=== PATIENT | female | born 1940 | race African-American/Black ===

== ENCOUNTER 2017-06-26 16:45 | Inpatient (IN) | payer MEDICARE, OTHER ==
[~2017-06-26] VITALS: Ht 148.6 cm; Wt 57.2 kg
[2017-06-26 17:10] VITALS: BP 136/78
[2017-06-26] MEDS ORDERED: TEMAZEPAM 15 MG CAPSULE PO PRN (17:45)
[2017-06-26] MEDS ORDERED: DEXTROSE 50%-WATER 25 GM/50 ML SYRINGE IVP PRN (17:45)
[2017-06-26 18:22] LABS: GLUCOMETER DEV NAME(LOC) 2WR 2D; GLUCOSE,POINT OF CARE 158 MG/DL (70-110)
[2017-06-26] MEDS: INSULIN ASPART 100 UNITS/ML SQ PRN ×2 (18:55→21:43)
[2017-06-26] MEDS ORDERED: HEPARIN SODIUM,PORCINE 5,000 UNITS/ML VIAL SQ SCH (21:00)
[2017-06-26] MEDS: SENNA 187 MG TABLET PO SCH (21:09)
[2017-06-26] MEDS: ATORVASTATIN CALCIUM 40 MG TABLET PO SCH (21:09)
[2017-06-26] MEDS: DOCUSATE SODIUM 100 MG CAPSULE PO SCH (21:10)
[2017-06-26 21:53] LABS: GLUCOMETER DEV NAME(LOC) 2WR 1B; GLUCOSE,POINT OF CARE 217 MG/DL (70-110)
[2017-06-26 22:05] LABS: APPEARANCE,URINE CLEAR (CLEAR); BILIRUBIN,URINE NEGATIVE (NEGATIVE); GLUCOSE, URINE (UA) NEGATIVE (NEGATIVE); KETONES,URINE NEGATIVE (NEGATIVE); LEUKOCYTE ESTERASE ,URINE NEGATIVE (NEGATIVE); NITRATE,URINE NEGATIVE (NEGATIVE); OCCULT BLOOD,URINE NEGATIVE (NEGATIVE); PROTEIN,URINE NEGATIVE (NEGATIVE); UROBILINOGEN,URINE 0.2 mg/dL (<=1.0)
[2017-06-26 22:29] LABS: BACTERIA,URINE Few /HPF (None Seen); RBC,URINE 0-2 /HPF (0-2); SQUAMOUS EPITHELIAL CELL,UR Few /LPF (None Seen); WBC,URINE 0-2 /HPF (0-5)
[2017-06-27 01:00] VITALS: BP 137/72
[2017-06-27] MEDS: LEVOTHYROXINE SODIUM 75 MCG TABLET PO SCH (05:48)
[2017-06-27 06:07] LABS: GLUCOMETER DEV NAME(LOC) 2WR 1B; GLUCOSE,POINT OF CARE 221 MG/DL (70-110)
[2017-06-27 06:59] LABS: BASOPHILS # (AUTO) 0.02 K/uL (0.00-0.20); BASOPHILS % (AUTO) 0.4 % (0.0-2.0); EOSINOPHILS # (AUTO) 0.08 K/uL (0.00-0.70); EOSINOPHILS % (AUTO) 1.79 % (1.0-6.0); HEMATOCRIT 37.3 % (36-46); HEMOGLOBIN 12.1 g/dL (12.0-16.0); LYMPHOCYTES # (AUTO) 2.5 K/uL (1.0-4.8); LYMPHOCYTES % (AUTO) 52.3 % (22.0-44.0); MEAN CORPUSCULAR HEMOGLOBIN 27.7 pg (26.0-34.0); MEAN CORPUSCULAR HGB CONC 32.4 G/dL (31.0-37.0); MEAN CORPUSCULAR VOLUME 85 fL (80-100); MONOCYTES # (AUTO) 0.6 K/uL (0.1-1.0); MONOCYTES % (AUTO) 13.2 % (2.0-9.0); NEUTROPHILS # (AUTO) 1.5 K/uL (1.8-7.7); NEUTROPHILS % (AUTO) 32.3 % (40.0-70.0); PLATELET COUNT (AUTO) 222 K/uL (150-450); RED BLOOD CELL COUNT(AUTO) 4.36 MIL/uL (4.00-5.20); RED CELL DISTRIBUTION WIDTH 14.2 % (11.5-14.5)
[2017-06-27 07:24] LABS: ALANINE AMINOTRANSFERASE 38 U/L (12-78); ALBUMIN 3.6 g/dL (3.4-5.0); ALKALINE PHOSPHATASE 87 U/L (46-116); ANION GAP 9 mmol/L (8-16); ASPARTATE AMINOTRANSFERASE 23 U/L (15-37); BILIRUBIN,TOTAL 0.4 mg/dL (0.1-1.0); CALCIUM, TOTAL 9.1 mg/dL (8.8-10.5); CARBON DIOXIDE 25 mmol/L (22-29); CHLORIDE 103 mmol/L (98-107); CREATININE 1.03 mg/dL (0.60-1.30); GLOMERULAR FILTR. RATE CALC > 60 mL/min (>60); GLUCOSE,RANDOM 229 mg/dL (70-110); POTASSIUM 4.3 mmol/L (3.5-5.1); SODIUM SERUM 137 mmol/L (136-145); TOTAL PROTEIN, SERUM 7.1 g/dL (6.4-8.2); UREA NITROGEN, BLOOD 18 mg/dL (7-18)
[2017-06-27 07:45] VITALS: BP 137/84
[2017-06-27] MEDS: ASPIRIN 81 MG CHEWABLE TABLET PO SCH (08:29)
[2017-06-27] MEDS: ASPIRIN/DIPYRIDAMOLE ER 25/200 MG ER CAPSULE PO SCH (08:29)
[2017-06-27] MEDS: HEPARIN SODIUM,PORCINE 5,000 UNITS/ML VIAL SQ SCH ×2 (08:29→20:20)
[2017-06-27] MEDS: DOCUSATE SODIUM 100 MG CAPSULE PO SCH ×2 (08:29→20:20)
[2017-06-27] MEDS: INSULIN ASPART 100 UNITS/ML SQ PRN ×4 (08:36→21:48)
[2017-06-27 12:57] LABS: GLUCOMETER DEV NAME(LOC) 2WR 2D; GLUCOSE,POINT OF CARE 219 MG/DL (70-110)
[2017-06-27 15:59] VITALS: BP 122/79
[2017-06-27 18:08] LABS: GLUCOMETER DEV NAME(LOC) 2WR 1B; GLUCOSE,POINT OF CARE 154 MG/DL (70-110)
[2017-06-27] MEDS: ATORVASTATIN CALCIUM 40 MG TABLET PO SCH (20:19)
[2017-06-27] MEDS: SENNA 187 MG TABLET PO SCH (20:19)
[2017-06-27 21:52] LABS: GLUCOMETER DEV NAME(LOC) 2WR 1B; GLUCOSE,POINT OF CARE 227 MG/DL (70-110)
[2017-06-28] MEDS ORDERED: ASCO500 PO (03:25)
[2017-06-28] MEDS ORDERED: ATEN100T PO (03:25)
[2017-06-28] MEDS ORDERED: METF500T4 PO ×2 (03:25)
[2017-06-28] MEDS ORDERED: CALC-1038 PO (03:25)
[2017-06-28] MEDS ORDERED: ASPI-1182 PO (03:25)
[2017-06-28] MEDS ORDERED: LEVO75 PO (03:25)
[2017-06-28] MEDS ORDERED: ATOR20TA86 PO (03:25)
[2017-06-28] MEDS ORDERED: CHOL200016 PO (03:25)
[2017-06-28] MEDS ORDERED: TELM20 PO (03:25)
[2017-06-28 05:44] VITALS: BP 138/77
[2017-06-28] MEDS: LEVOTHYROXINE SODIUM 75 MCG TABLET PO SCH (05:54)
[2017-06-28 06:03] LABS: GLUCOMETER DEV NAME(LOC) 2WR 1B; GLUCOSE,POINT OF CARE 192 MG/DL (70-110)
[2017-06-28 07:42] VITALS: BP 140/89
[2017-06-28] MEDS: DOCUSATE SODIUM 100 MG CAPSULE PO SCH ×2 (08:04→20:47)
[2017-06-28] MEDS: ASPIRIN/DIPYRIDAMOLE ER 25/200 MG ER CAPSULE PO SCH (08:04)
[2017-06-28] MEDS: HEPARIN SODIUM,PORCINE 5,000 UNITS/ML VIAL SQ SCH ×2 (08:05→20:48)
[2017-06-28] MEDS: ASPIRIN 81 MG CHEWABLE TABLET PO SCH (08:05)
[2017-06-28] MEDS: INSULIN ASPART 100 UNITS/ML SQ PRN ×4 (08:42→20:49)
[2017-06-28] MEDS: ACETAMINOPHEN 325 MG TABLET PO PRN ×2 (08:44→20:48)
[2017-06-28 12:38] LABS: GLUCOMETER DEV NAME(LOC) 2WR 1B; GLUCOSE,POINT OF CARE 177 MG/DL (70-110)
[2017-06-28 15:42] VITALS: BP 126/56
[2017-06-28 17:23] LABS: GLUCOMETER DEV NAME(LOC) 2WR 2D; GLUCOSE,POINT OF CARE 164 MG/DL (70-110)
[2017-06-28] MEDS: SENNA 187 MG TABLET PO SCH (20:47)
[2017-06-28] MEDS: ATORVASTATIN CALCIUM 40 MG TABLET PO SCH (20:48)
[2017-06-28 21:33] LABS: GLUCOMETER DEV NAME(LOC) 2WR 1B; GLUCOSE,POINT OF CARE 201 MG/DL (70-110)
[2017-06-28 23:30] VITALS: BP 120/74
[2017-06-29 06:08] LABS: GLUCOMETER DEV NAME(LOC) 2WR 2D; GLUCOSE,POINT OF CARE 158 MG/DL (70-110)
[2017-06-29] MEDS: LEVOTHYROXINE SODIUM 75 MCG TABLET PO SCH (06:11)
[2017-06-29 07:43] VITALS: BP 139/90
[2017-06-29] MEDS: HEPARIN SODIUM,PORCINE 5,000 UNITS/ML VIAL SQ SCH ×2 (08:24→21:23)
[2017-06-29] MEDS: ASPIRIN/DIPYRIDAMOLE ER 25/200 MG ER CAPSULE PO SCH (08:25)
[2017-06-29] MEDS: DOCUSATE SODIUM 100 MG CAPSULE PO SCH ×2 (08:25→21:24)
[2017-06-29] MEDS: ASPIRIN 81 MG CHEWABLE TABLET PO SCH (08:26)
[2017-06-29] MEDS: ACETAMINOPHEN 325 MG TABLET PO PRN ×3 (08:27→21:25)
[2017-06-29 12:03] LABS: GLUCOMETER DEV NAME(LOC) 2WR 1B; GLUCOSE,POINT OF CARE 208 MG/DL (70-110)
[2017-06-29] MEDS: INSULIN ASPART 100 UNITS/ML SQ PRN ×3 (14:08→21:26)
[2017-06-29 15:00] VITALS: BP 128/71
[2017-06-29 18:34] LABS: GLUCOMETER DEV NAME(LOC) 2WR 1B; GLUCOSE,POINT OF CARE 145 MG/DL (70-110)
[2017-06-29] MEDS: DICLOFENAC SODIUM 1% 100 GM GEL [2GM] TP SCH (21:22)
[2017-06-29] MEDS: MetFORMIN HCL 500 MG TABLET PO SCH (21:24)
[2017-06-29] MEDS: ATENOLOL 100 MG TABLET PO SCH (21:24)
[2017-06-29] MEDS: SENNA 187 MG TABLET PO SCH (21:24)
[2017-06-29] MEDS: ATORVASTATIN CALCIUM 40 MG TABLET PO SCH (21:24)
[2017-06-29 21:30] VITALS: BP 125/78
[2017-06-29 21:53] LABS: GLUCOMETER DEV NAME(LOC) 2WR 1B; GLUCOSE,POINT OF CARE 236 MG/DL (70-110)
[2017-06-30 05:00] VITALS: BP 120/60
[2017-06-30] MEDS: LEVOTHYROXINE SODIUM 75 MCG TABLET PO SCH (05:48)
[2017-06-30 06:18] LABS: GLUCOMETER DEV NAME(LOC) 2WR 2D; GLUCOSE,POINT OF CARE 187 MG/DL (70-110)
[2017-06-30] MEDS ORDERED: MetFORMIN HCL 500 MG TABLET PO SCH (07:30)
[2017-06-30 08:30] VITALS: BP 105/69
[2017-06-30] MEDS: DOCUSATE SODIUM 100 MG CAPSULE PO SCH ×2 (09:00→20:44)
[2017-06-30] MEDS: ASPIRIN 81 MG CHEWABLE TABLET PO SCH (09:22)
[2017-06-30] MEDS: ASPIRIN/DIPYRIDAMOLE ER 25/200 MG ER CAPSULE PO SCH (09:22)
[2017-06-30] MEDS: DICLOFENAC SODIUM 1% 100 GM GEL [2GM] TP SCH ×2 (09:23→20:44)
[2017-06-30] MEDS: HEPARIN SODIUM,PORCINE 5,000 UNITS/ML VIAL SQ SCH ×2 (09:23→20:48)
[2017-06-30] MEDS: INSULIN ASPART 100 UNITS/ML SQ PRN ×3 (10:02→20:58)
[2017-06-30] MEDS ORDERED: CALC-916 PO (11:05)
[2017-06-30 13:13] LABS: GLUCOMETER DEV NAME(LOC) 2WR 1B; GLUCOSE,POINT OF CARE 225 MG/DL (70-110)
[2017-06-30 15:39] VITALS: BP_SYST 103; BP_SYST 110; BP_DIAS 54; BP_DIAS 62
[2017-06-30 17:52] LABS: GLUCOMETER DEV NAME(LOC) 2WR 2D; GLUCOSE,POINT OF CARE 97 MG/DL (70-110)
[2017-06-30] MEDS: SENNA 187 MG TABLET PO SCH (20:44)
[2017-06-30 20:45] VITALS: BP 132/62
[2017-06-30] MEDS: ATENOLOL 100 MG TABLET PO SCH (20:47)
[2017-06-30] MEDS: MetFORMIN HCL 500 MG TABLET PO SCH (20:48)
[2017-06-30] MEDS: ATORVASTATIN CALCIUM 40 MG TABLET PO SCH (20:48)
[2017-06-30 21:23] LABS: GLUCOMETER DEV NAME(LOC) 2WR 1B; GLUCOSE,POINT OF CARE 168 MG/DL (70-110)
[2017-07-01 00:16] VITALS: BP 112/60
[2017-07-01 05:43] LABS: GLUCOMETER DEV NAME(LOC) 2WR 1B; GLUCOSE,POINT OF CARE 145 MG/DL (70-110)
[2017-07-01] MEDS: LEVOTHYROXINE SODIUM 75 MCG TABLET PO SCH (06:03)
[2017-07-01 07:30] VITALS: BP 100/63
[2017-07-01] MEDS ORDERED: MetFORMIN HCL 500 MG TABLET PO SCH (07:30)
[2017-07-01] MEDS: DOCUSATE SODIUM 100 MG CAPSULE PO SCH (09:00)
[2017-07-01] MEDS: HEPARIN SODIUM,PORCINE 5,000 UNITS/ML VIAL SQ SCH ×2 (09:30→20:45)
[2017-07-01] MEDS: INSULIN ASPART 100 UNITS/ML SQ PRN ×2 (09:32→20:52)
[2017-07-01] MEDS: DICLOFENAC SODIUM 1% 100 GM GEL [2GM] TP SCH ×2 (09:35→20:43)
[2017-07-01] MEDS: ASPIRIN/DIPYRIDAMOLE ER 25/200 MG ER CAPSULE PO SCH ×2 (10:09→20:44)
[2017-07-01 12:03] LABS: GLUCOMETER DEV NAME(LOC) 2WR 2D; GLUCOSE,POINT OF CARE 121 MG/DL (70-110)
[2017-07-01 15:38] VITALS: BP 110/55
[2017-07-01 16:53] LABS: GLUCOMETER DEV NAME(LOC) 2WR 2D; GLUCOSE,POINT OF CARE 136 MG/DL (70-110)
[2017-07-01] MEDS: ATORVASTATIN CALCIUM 40 MG TABLET PO SCH (20:44)
[2017-07-01] MEDS: MetFORMIN HCL 500 MG TABLET PO SCH (20:44)
[2017-07-01] MEDS: ATENOLOL 100 MG TABLET PO SCH (20:44)
[2017-07-01 21:28] LABS: GLUCOMETER DEV NAME(LOC) 2WR 2D; GLUCOSE,POINT OF CARE 144 MG/DL (70-110)
[2017-07-02 00:59] VITALS: BP 108/54
[2017-07-02] MEDS: LEVOTHYROXINE SODIUM 75 MCG TABLET PO SCH (05:56)
[2017-07-02 06:24] LABS: GLUCOMETER DEV NAME(LOC) 2WR 1B; GLUCOSE,POINT OF CARE 145 MG/DL (70-110)
[2017-07-02 07:45] VITALS: BP 117/64
[2017-07-02] MEDS: DICLOFENAC SODIUM 1% 100 GM GEL [2GM] TP SCH ×2 (08:40→20:24)
[2017-07-02] MEDS: ASPIRIN/DIPYRIDAMOLE ER 25/200 MG ER CAPSULE PO SCH ×2 (08:40→20:23)
[2017-07-02] MEDS: MetFORMIN HCL 500 MG TABLET PO SCH ×2 (08:40→20:23)
[2017-07-02] MEDS: HEPARIN SODIUM,PORCINE 5,000 UNITS/ML VIAL SQ SCH ×2 (08:45→20:24)
[2017-07-02] MEDS: INSULIN ASPART 100 UNITS/ML SQ PRN ×2 (08:55→20:43)
[2017-07-02] MEDS: LOPERAMIDE HCL 2 MG CAPSULE PO PRN (10:51)
[2017-07-02 12:58] LABS: GLUCOMETER DEV NAME(LOC) 2WR 1B; GLUCOSE,POINT OF CARE 127 MG/DL (70-110)
[2017-07-02 13:23] LABS: C.DIFF GDH ANTIGEN, Stool Negative (Negative); C.DIFF TOXINS A&B, Stool Negative (Negative)
[2017-07-02 17:41] VITALS: BP 108/60
[2017-07-02 17:58] LABS: GLUCOMETER DEV NAME(LOC) 2WR 1B; GLUCOSE,POINT OF CARE 105 MG/DL (70-110)
[2017-07-02] MEDS: ATENOLOL 100 MG TABLET PO SCH (20:23)
[2017-07-02] MEDS: ATORVASTATIN CALCIUM 40 MG TABLET PO SCH (20:23)
[2017-07-02 20:26] VITALS: BP 113/59
[2017-07-02 21:03] LABS: GLUCOMETER DEV NAME(LOC) 2WR 1B; GLUCOSE,POINT OF CARE 152 MG/DL (70-110)
[2017-07-03 05:36] VITALS: BP 113/62
[2017-07-03] MEDS: ACETAMINOPHEN 325 MG TABLET PO PRN ×2 (05:36→23:18)
[2017-07-03] MEDS: LEVOTHYROXINE SODIUM 75 MCG TABLET PO SCH (05:36)
[2017-07-03 05:48] LABS: GLUCOMETER DEV NAME(LOC) 2WR 1B; GLUCOSE,POINT OF CARE 135 MG/DL (70-110)
[2017-07-03 07:30] VITALS: BP 124/68
[2017-07-03] MEDS: MetFORMIN HCL 500 MG TABLET PO SCH ×2 (08:20→20:15)
[2017-07-03] MEDS: ASPIRIN/DIPYRIDAMOLE ER 25/200 MG ER CAPSULE PO SCH ×2 (08:20→20:14)
[2017-07-03] MEDS: DICLOFENAC SODIUM 1% 100 GM GEL [2GM] TP SCH ×2 (08:21→20:15)
[2017-07-03] MEDS: HEPARIN SODIUM,PORCINE 5,000 UNITS/ML VIAL SQ SCH ×2 (08:21→20:15)
[2017-07-03 12:38] LABS: GLUCOMETER DEV NAME(LOC) 2WR 1B; GLUCOSE,POINT OF CARE 119 MG/DL (70-110)
[2017-07-03 15:15] VITALS: BP 106/62
[2017-07-03 17:44] LABS: GLUCOMETER DEV NAME(LOC) 2WR 2D; GLUCOSE,POINT OF CARE 111 MG/DL (70-110)
[2017-07-03 20:03] VITALS: BP 119/74
[2017-07-03] MEDS: ATENOLOL 100 MG TABLET PO SCH (20:15)
[2017-07-03] MEDS: ATORVASTATIN CALCIUM 40 MG TABLET PO SCH (20:15)
[2017-07-03] MEDS: INSULIN ASPART 100 UNITS/ML SQ PRN (20:30)
[2017-07-03 21:27] LABS: GLUCOMETER DEV NAME(LOC) 2WR 1B; GLUCOSE,POINT OF CARE 150 MG/DL (70-110)
[2017-07-03 23:18] VITALS: BP 120/70
[2017-07-04] MEDS ORDERED: ASPI1CPM8 PO (01:24)
[2017-07-04] MEDS ORDERED: DICL2100G TP (01:32)
[2017-07-04] MEDS ORDERED: ACET-784 PO (01:32)
[2017-07-04] MEDS ORDERED: INSNOV SQ (01:36)
[2017-07-04] MEDS: LOPERAMIDE HCL 2 MG CAPSULE PO PRN (03:58)
[2017-07-04] MEDS: LEVOTHYROXINE SODIUM 75 MCG TABLET PO SCH (05:45)
[2017-07-04 05:55] LABS: GLUCOMETER DEV NAME(LOC) 2WR 1B; GLUCOSE,POINT OF CARE 129 MG/DL (70-110)
[2017-07-04 07:48] VITALS: BP 114/54
[2017-07-04] MEDS: MetFORMIN HCL 500 MG TABLET PO SCH (09:34)
[2017-07-04] MEDS: DICLOFENAC SODIUM 1% 100 GM GEL [2GM] TP SCH (09:35)
[2017-07-04] MEDS: HEPARIN SODIUM,PORCINE 5,000 UNITS/ML VIAL SQ SCH (09:35)
[2017-07-04] MEDS: ASPIRIN/DIPYRIDAMOLE ER 25/200 MG ER CAPSULE PO SCH (09:36)
[2017-07-04] MEDS: INSULIN ASPART 100 UNITS/ML SQ PRN (13:02)
[2017-07-04 13:12] LABS: GLUCOMETER DEV NAME(LOC) 2WR 1B; GLUCOSE,POINT OF CARE 148 MG/DL (70-110)
== END 2017-07-04 13:12 | disposition home or self-care (01) | DRG 56 ==
LOC: 2WR 16:45
PROVIDERS: ADMIT Physical Medicine & Rehabilitation; ATTEND Physical Medicine & Rehabilitation
DX: G81.94 Hemiplegia, unspecified affecting left nondominant side (principal); I63.9 Cerebral infarction, unspecified; E11.9 Type 2 diabetes mellitus without complications; E03.9 Hypothyroidism, unspecified; E78.5 Hyperlipidemia, unspecified; R26.9 Unspecified abnormalities of gait and mobility; R47.1 Dysarthria and anarthria; F32.9 Major depressive disorder, single episode, unspecified; M25.511 Pain in right shoulder; R19.7 Diarrhea, unspecified; F41.9 Anxiety disorder, unspecified; I10 Essential (primary) hypertension; Z79.84 Long term (current) use of oral hypoglycemic drugs; Z90.710 Acquired absence of both cervix and uterus; Z85.3 Personal history of malignant neoplasm of breast; Z80.3 Family history of malignant neoplasm of breast; Z82.3 Family history of stroke; Z82.49 Family history of ischemic heart disease and other diseases of the circulatory system; Z98.42 Cataract extraction status, left eye; Z98.41 Cataract extraction status, right eye
CPT/HCPCS: 82962; 87081; 87324; 87449; 92507; 92508; 92523; 97112; 97116; 97150; 97162; 97167; 97530; 97535; 99366; J1644